=== PATIENT | female | born 1965 | race Caucasian/White ===

== ENCOUNTER → 2017-03-12 | Outpatient (CLI) | payer OTHER ==
--- NOTE | 2017-03-12 12:15 | REP ---
BILATERAL DIGITAL SCREENING MAMMOGRAPHY: 03/12/2017 COMPARISON: 01/18/2016, 01/15/2015, 01/08/2014. CLINICAL HISTORY: She has no current complaints. There is no personal history of breast cancer. There is a family history of an aunt with breast cancer. Technologist notes indicate that during compression of the right breast there is a brownish discharge. The patient stated this has been intermittently present on the right for the past 3 years. FINDINGS: The breast parenchyma are extremely dense which limits the sensitivity of mammography. Scattered lymph nodes are seen in the axilla. Scattered small benign appearing calcifications are present of doubtful clinical significance. No dominant masses, suspicious cluster of microcalcifications or secondary signs of malignancy are seen. Specifically, I see no abnormal findings in the retroareolar region of the right breast in this patient with discharge upon compression today. IMPRESSION: BIRADS ACR category 2, benign. Benign findings. No evidence of malignancy. However, the presence of a discharge during compression with brownish character raises some concern. The technologist states that this will be evaluated with laboratory analysis for blood per her physician. Pending that, further evaluation may be needed with ductogram for continued discharge. Otherwise, based on the mammogram alone, no other follow-up is needed at this time. BI-RADS/ACR category 2 mammogram. Benign finding(s). Routine annual screening mammography (for women over age 40). This mammogram was interpreted with the aid of an FDA-approved computer-aided detection system. A. Negative x-ray reports should not delay biopsy if a dominant or clinically suspicious mass is present. B. Four to eight percent of cancers are not identified by x-ray. C. Adenosis and dense breasts may obscure an underlying neoplasm. The patient states she/he had a clinical breast exam in March,. The patient letter being requested is M1, dense.
== END ==
LOC: M WHC 10:13
PROVIDERS: ATTEND Nurse Practitioner Women's Health
DX: Z12.31 Encounter for screening mammogram for malignant neoplasm of breast (principal)

== ENCOUNTER → 2017-03-12 | Outpatient (REF) | payer OTHER | LOC: M SFHCWAGY 10:50 | PROVIDERS: ATTEND Nurse Practitioner Women's Health | DX: N64.52 Nipple discharge (principal); Z12.39 Encounter for other screening for malignant neoplasm of breast ==

== ENCOUNTER → 2017-03-15 | Outpatient (REF) | payer OTHER | LOC: M WHC 17:10 | PROVIDERS: ATTEND Nurse Practitioner Women's Health | DX: N64.52 Nipple discharge (principal); Z12.39 Encounter for other screening for malignant neoplasm of breast ==

== ENCOUNTER → 2017-03-22 | Outpatient (CLI) | payer OTHER ==
[~2017-03-22] MED LIST: CONRAY-43 43% 50ML VIAL (Q9960) As Ordered ONE
--- NOTE | 2017-03-22 15:52 | REP ---
Right breast galactogram: Informed consent is obtained including the possibility is of of breast infection and allergic reaction to either medications utilized. After antiseptic preparation of the nipple of the right breast, and using sterile technique, a colectomy cannula was introduced into the discharging duct. Approximately weight 3 ml of radiopaque contrast is slowly injected with the patient supine, utilizing gravitation. Following this the cannula is removed and a steri-strip is applied to the nipple. Followup mammograms are performed in MLO and CC projections including magnified views. Findings: There is a filling defect posteriorly near to the chest wall at the approximate 3 o'clock location in the posterior third of the breast. Review of the patient's recent mammogram dated 03/12/2017 identifies no focal abnormality in this location. Some diagnostic considerations are papilloma and DCIS. I would recommend follow-up ultrasonography and possibly mammography for further evaluation and localization. If the lesion is visible on ultrasound, an ultrasound guided biopsy might be possible. Signed by Leighton Brasher MD 03/22/2017 03:44 P
== END ==
LOC: M RAD 13:28
PROVIDERS: ATTEND Nurse Practitioner Women's Health
DX: N64.52 Nipple discharge (principal); R92.8 Other abnormal and inconclusive findings on diagnostic imaging of breast
CPT/HCPCS: 77054; Q9960

== ENCOUNTER → 2017-03-30 | Outpatient (CLI) | payer OTHER ==
--- NOTE | 2017-03-30 10:54 | REP ---
ULTRASOUND RIGHT BREAST: Ultrasound right breast performed. Correlation made with right breast ductogram performed 03/22/2017. That ductogram showed a filling defect in a mildly dilated duct posterolaterally in the right breast at 9-o'clock position. Real-time sonographic evaluation of the right breast is performed both medially and laterally. Scattered mildly dilated ducts contain ill-defined internal debris. No discrete cystic or solid nodule is seen. IMPRESSION: No discrete cystic or solid nodule in the region of filling defect seen on the right breast ductogram of 03/22/2017. That filling defect was seen at 9 -o'clock position. Further evaluation could be made with MRI. Signed by Leighton Bales MD 03/30/2017 04:39 P
== END ==
LOC: M RAD 09:41
PROVIDERS: ATTEND Nurse Practitioner Women's Health
DX: N64.52 Nipple discharge (principal)

== ENCOUNTER → 2018-12-05 | Outpatient (REF) | payer OTHER ==
--- NOTE | 2018-12-05 10:23 | REPMRS ---
Patient History The patient states she had a clinical breast exam in 11/2018. Family history of breast cancer in maternal aunt. 3D TOMOSYNTHESIS WAS PERFORMED. Digital Woman Screen Mammo: December 05, 2018 - Exam #: [id number] Bilateral CC and MLO view(s) were taken. Technologist: Cindy Brambila, Technologist Prior study comparison: March 12, 2017, digital woman screen mammo performed at [facility]. January 21, 2016, digital woman screen mammo performed at [facility]. FINDINGS: The breast tissue is extremely dense which could obscure a lesion on mammography. There is no evidence of cancer on this mammogram. No significant changes when compared with prior studies. Assessment: BI-RADS/ACR category 2 mammogram. Benign Findings. Recommendation Routine screening mammogram of both breasts in 1 year (for women over age 40). This mammogram was interpreted with the aid of an FDA-approved computer-aided dectection system. Electronically Signed By: Leighton Bales MD 12/05/18 [id number]
== END ==
LOC: M WHC 08:26 → EDSTATUS 09:00
PROVIDERS: ATTEND Nurse Practitioner Women's Health
DX: Z12.31 Encounter for screening mammogram for malignant neoplasm of breast (principal)

== ENCOUNTER → 2019-12-07 | Outpatient (CLI) | payer OTHER ==
--- NOTE | 2019-12-07 10:19 | REPMRS ---
Patient History The patient states she had a clinical breast exam in November 2019.Family history of breast cancer in maternal aunt. Digital Woman Screen Mammo: December 07, 2019 - Exam #: [id number] Bilateral CC and MLO view(s) were taken. Technologist: Sally Ybarra, Technologist Prior study comparison: December 05, 2018, bilateral digital woman screen mammo performed at [facility]. March 22, 2017, right breast mammary ductogram, multiple, performed at [facility]. March 12, 2017, digital woman screen mammo performed at [facility]. January 21, 2016, digital woman screen mammo performed at [facility]. FINDINGS: The breast tissue is extremely dense which could obscure a lesion on mammography. The Volpara volumetric breast density category is: D. There is an extremely dense symmetrical pattern of residual fibroglandular tissue. There has been no change in the appearance of the mammogram from the previous studies. There is no interval development of dominant mass, archetectural distortion, or grouped microcalcifications suggestive of malignancy. 3-D tomosynthesis shows no additional findings. Please note that the patient had a significant amount of brown or rust colored right breast nipple discharge when the right breast was compressed for today's mammography. By history, this is chronic. Assessment: BI-RADS/ACR category 1 mammogram. Negative Mammogram. Recommendation Routine screening mammogram of both breasts in 1 year (for women over age 40). This patient's Lifetime Breast Cancer RIsk is estimated at 12.2 %. There may be a role for bilateral breast MRI scanning in this patient with a chronic history of right breast nipple discharge associated with compression mammography. By history this discharge is brown or rust color. This mammogram was interpreted with the aid of an FDA-approved computer-aided dectection system. Electronically Signed By: Caio Anaya MD 12/07/19 1017
== END ==
LOC: M WHC 08:41
PROVIDERS: ATTEND Nurse Practitioner Women's Health
DX: Z12.31 Encounter for screening mammogram for malignant neoplasm of breast (principal)

== ENCOUNTER → 2020-01-17 | Outpatient (CLI) | payer OTHER ==
[~2020-01-17] MED LIST changes: -CONRAY-43 43% 50ML VIAL (Q9960) As Ordered ONE; +PROHANCE 279.3MG/ML 15ML VIAL As Ordered ONE
--- NOTE | 2020-01-18 00:21 | REP ---
MRI BILATERAL BREASTS WITH AND WITHOUT CONTRAST: HISTORY: Family history of breast cancer maternal aunt, right breast discharge, dense breasts. Correlation mammogram 12/07/2019. TECHNIQUE: Multiple sequences obtained in the axial, coronal, and sagittal planes prior to and following the intravenous administration of 12 mL ProHance. Images are evaluated in the Odojo software, including dynamic post IV gadolinium T1 fat-sat images, subtraction images, color overlay images, CAD images, and MIP reconstruction images. There is an extreme pattern of parenchymal tissue bilaterally. Subcentimeter cyst in the 6-o'clock region of the right breast inferiorly does not enhance. There are moderately dilated ducts in the right breast with no suspicious internal enhancement. In the inferolateral posterior left breast, there is a well-defined nodule on T2-weighted images, hyperintense, which demonstrates persistent-type enhancement. Borders are very well defined and smoothly marginated. Maximum diameter is 8 mm. This is most consistent with a fibroadenoma. No suspicious enhancing mass or morphologic abnormality is seen bilaterally. There is no axillary adenopathy. There is a cyst in the right lobe of the liver, which does not enhance, measuring 1.4 cm. IMPRESSION: BI-RADS category 2, benign. Extreme parenchymal tissue bilaterally. Moderately dilated ducts in the right breast contain hyperintense material on T1-weighted imaged, consistent with proteinaceous material. No internal abnormal enhancement. There is an 8 mm nodule in the inferolateral posterior left breast with signal and enhancement characteristics consistent with a fibroadenoma. There is no suspicious enhancing mass or morphologic abnormality bilaterally. Electronically Signed by Leighton Bales MD 01/18/2020 01:29 P
== END ==
LOC: M RAD 10:10
PROVIDERS: ATTEND Nurse Practitioner Family
DX: R92.2 Inconclusive mammogram (principal); N64.52 Nipple discharge; Z80.3 Family history of malignant neoplasm of breast; Z91.89 Other specified personal risk factors, not elsewhere classified; N63.20 Unspecified lump in the left breast, unspecified quadrant

== ENCOUNTER → 2020-12-11 | Outpatient (REF) | payer BC | LOC: M SFHCWAGY 12:59 | PROVIDERS: ATTEND Nurse Practitioner Women's Health | DX: Z12.4 Encounter for screening for malignant neoplasm of cervix (principal); Z77.9 Other contact with and (suspected) exposures hazardous to health ==

== ENCOUNTER → 2020-12-11 | Outpatient (CLI) | payer BC ==
--- NOTE | 2020-12-11 10:13 | REPMRS ---
Patient History The patient states she had a clinical breast exam in December 2020. Patient is postmenopausal. Family history of breast cancer in maternal aunt, breast cancer at age 82 in mother, prostate cancer at age 50 or over in brother. Patient states no new breast complaints. Patient states history of right breast brown nipple discharge since about 2016. Patient has signed the MRS history sheet Digital Woman Screen Mammo: December 11, 2020 - Exam #: [id number] Bilateral CC and MLO view(s) were taken. Technologist: Cindy Brambila, Technologist Prior study comparison: December 07, 2019, bilateral digital woman screen mammo performed at [facility]. December 05, 2018, bilateral digital woman screen mammo performed at [facility]. FINDINGS: The breast tissue is extremely dense which could obscure a lesion on mammography. Screening. Digital screening (2D) mammography was performed bilaterally in the CC and MLO projections. Additionally, breast tomosynthesis (3D mammography) was performed bilaterally in the CC and MLO projections. Todays exam was compared to the prior exams(s). By history, the patient has no complaints of a palpable breast abnormality or other significant breast complaints. The breasts are unchanged in size and shape. Once again, dense heterogenous fibroglandular elements are seen bilaterally in a stable appearing pattern but to such a degree that the sensitivity of the mammogram in detecting cancer is decreased.There are no heber-soft tissue densities or spiculated masses. There is no internal architectural distortion. Once again, stable benign appearing calcifications are seen.There are no suspicious heber-calcific clusters. Skin thickening or nipple retraction is not present. IMPRESSION: BI-RADS Category 2- Benign Findings(s). There is no evidence of malignant alteration of the breasts. Followup examination recommended in one year. This mammogram was read with the assistance of [employer]ark[employer],an FDA approved computer aided detection system for mammography. The Volpara volumetric breast density category is D, the breasts are extremely dense which lowers the sensitivity of mammography. Negative x-ray reports should not delay surgical consultation if a dominant or clinically suspicious mass is present. The lifetime Tyrer-Cuzick score is 19.1% Not all breast cancers can be identified by mammography. Therefore, we recommend that you continue to perform regular breast self-examination and physical examination and then promptly contact your physician of any concerns or changes. Adenosis and dense breasts may obscure an underlying neoplasm. Assessment: BI-RADS/ACR category 2 mammogram. Benign Findings. Recommendation Routine screening mammogram of both breasts in 1 year. Electronically Signed By: Junior Calvin DO 12/11/20 1019
== END ==
LOC: M WHC 07:52
PROVIDERS: ATTEND Nurse Practitioner Women's Health
DX: Z12.31 Encounter for screening mammogram for malignant neoplasm of breast (principal)

== ENCOUNTER → 2021-03-14 | Outpatient (CLI) | payer BC ==
[2021-03-14 17:38] LABS: FREE T4 0.76 NG/DL (0.76-1.46); PROLACTIN 9.4 NG/ML; THYROID STIMULATING HORMONE 0.796 uIU/ML (0.358-3.740)
== END ==
LOC: M PLALAB 15:23
PROVIDERS: ATTEND Surgery
DX: N64.52 Nipple discharge (principal)

== ENCOUNTER → 2021-03-24 | Outpatient (CLI) | payer BC ==
--- NOTE | 2021-03-24 15:52 | REP ---
INDICATION: Nipple discharge COMPARISON: No prior ultrasound exams obtained in this fashion TECHNIQUE: Real-time sonographic evaluation of the right breast as described above using anatomical intelligence and shear wave elastography if necessary FINDINGS: There are no cystic or solid masses. IMPRESSION: ACR category 2 benign right breast ultrasound exam. A negative ultrasound examination does not obviate ductography in patients with known nipple discharge. If an intraductal lesion is of clinical concern an MRI examination may be warranted. <Electronically signed by Junior Calvin > 03/24/21 [id number]
== END ==
LOC: M WHC 13:32
PROVIDERS: ATTEND Surgery
DX: N64.52 Nipple discharge (principal)

== ENCOUNTER → 2021-04-22 | Outpatient (CLI) | payer BC ==
--- NOTE | 2021-04-22 10:05 | REP ---
INDICATION: DISCHARGE FROM RT NIPPLE. COMPARISON: MRI 01/17/2020, ultrasound 03/24/2021, mammogram 12/11/2020. TECHNIQUE: Three Kelly MRI imaging was performed with a dedicated breast coil. Axial, coronal, and sagittal T1 and T2 weighted scans were obtained with and without fat saturation in the usual fashion. The study includes dynamically acquired post gadolinium-enhanced imaging with image subtraction. Maximum intensity projection and multi planar reformation imaging is included as well. This study is interpreted with the aid of [employer]Nsquare, an FDA approved computer aided detection (CAD) software program, on a dedicated breast MRI workstation. The gadolinium enhancement dose is 12 mL of intravenous ProHance. FINDINGS: There is an extreme pattern of parenchymal tissue again seen bilaterally. No significant cystic change is seen in either breast. There is no axillary adenopathy bilaterally. Mildly dilated ducts are again seen in the right breast containing hyperdense proteinaceous or hemorrhagic material. There is no suspicious intraductal enhancement. An 8 mm fibroadenoma is again seen in the inferolateral left breast, unchanged. There is no suspicious enhancing mass or morphologic abnormality. There is a 1.4 cm cyst in the right lobe of the liver, unchanged. IMPRESSION: BI-RADS category 2, benign bilateral breast MRI. No significant change compared to the prior study. Mildly dilated ducts in the right breast contain proteinaceous or hemorrhagic material with no suspicious internal enhancement. 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 There is no suspicious enhancing mass or morphologic abnormality. <Electronically signed by Leighton Bales > 04/22/21 1002
== END ==
LOC: M RAD 08:14
PROVIDERS: ATTEND Surgery
DX: N64.52 Nipple discharge (principal)

== ENCOUNTER → 2021-05-27 | Outpatient (CLI) | payer BC ==
--- NOTE | 2021-05-27 15:21 | REP ---
INDICATION: PRE OP TESTING. COMPARISON: None. TECHNIQUE: PA and lateral views FINDINGS: The superior mediastinal structures are midline. The cardiac silhouette is unremarkable in size, shape, and position. The diaphragmatic surfaces of the lungs are regular, and the costophrenic angles are clear. The pulmonary adrian are clear. The imaged osseous structures are intact. IMPRESSION: There is no acute cardiopulmonary disease. <Electronically signed by Junior Calvin > 05/27/21 [id number]
== END ==
LOC: M WUC 09:47
PROVIDERS: ATTEND Internal Medicine
DX: Z01.811 Encounter for preprocedural respiratory examination (principal)

== ENCOUNTER → 2021-06-12 | Outpatient (CLI) | payer BC ==
[~2021-06-12] MED LIST changes: +CALCCAP4 PO; +CVS-161 PO; +MULT-90 PO; -PROHANCE 279.3MG/ML 15ML VIAL As Ordered ONE
== END ==
LOC: M LABSMTC 10:24
PROVIDERS: ATTEND Anesthesiology
DX: Z01.818 Encounter for other preprocedural examination (principal); Z11.52 Encounter for screening for COVID-19

== ENCOUNTER 2021-06-17 06:01 | Day surgery (SDC) | payer BC ==
[~2021-06-17] VITALS: Ht 162.6 cm; Wt 56.7 kg
[~2021-06-17 06:01] MED LIST changes: +HEPARIN SOD (PORCINE) 5000UNITS/ML 1ML VIAL/SYRINGE SQ ONE; +LR 1,000 ML IV ONE; +ceFAZolin SOD 2 GM in IV 1 EA IV ONE
--- OUTSIDE RECORDS SUMMARY | 2021-06-17 06:05 | CCD | Continuity of Care Document ---
Author Organization Unknown Address Unknown Phone Unavailable Care Team Providers [facility] [place] Machine Operator Name Role Phone Donell Tineo AUTM [phone] Problems Description No Information Available Social History Type Date Description Comments Sex Unknown ETOH Use Rarely consumes alcohol Tobacco Use Start: Unknown End: Unknown Patient is a former smoker smoked for 10 to 12 years 1/2 to 1 kevin daily quit in 2018 Exercise Type/Frequency Exercises regularly Walk s a lot Guns in Home No Smoke Alarms Carbon Monoxide Detector: Yes Smoke Alarms Yes Allergies, Adverse Reactions, Alerts Description No Known Drug Allergies Medications Active Medications SIG Qnty Indications Ordering Provide r Date Shingrix 50mcg/0.5ML Suspension Re c administer 0.5 milliliters intramuscular, repeat in 2 to 6 months 2units JULIO C Wilkinson JR 12/20/2020 History Medications No Active Medications Unknown 04/2021 - 12/20/2020 Medications Administered in Office Medication SIG Qnty Indications Ordering Provider Date Covid-19 vaccine, Unspecified Inj ection Unknown 11/06/2020 Immunizations Description No Information Available Vital Signs Date Vital Result Comment 11/15/2020 8:45am BP Systolic 134 mmHg BP Diastolic 84 mmHg Heart Rate 82 /min Height 64 inches 5'4" Weight 130.00 lb O2 % BldC Oximetry 98 % RM Air BMI (Body Mass Index) 22.3 kg/m2 Results Test Acquired Date Facility Test Result H/L Range Note Laboratory test finding 03/14/2021 [facility] [address] [place] [address] [phone] Thyroid Stimulating Hormone 0.796 uIU/ML Normal 0. 358-3.740 Free T4 0.76 ng/dL Normal 0.76-1.46 Prolactin 9.4 NG/ML Normal 1 Complete Blood Count 11/15/2020 [facility] [employer] Data Warehouse Consultant: [place] [address] [phone] WBC 5.6 x10*3/UL 4.1 - 10.9 RBC 4.39 x10*6/UL 4.20 - 6.30 Hemoglobin 14.0 g/dL 12.0 - 18.0 Hematocrit 41.4 % 37.0 - 51.0 MCV 94.2 fL 80.0 - 97.0 MCH 31.9 pg 26.0 - 32.0 MCHC 33.9 g/dL 31.0 - 38.0 RDW 12.3 % 11.6 - 13.7 PLT 297 x10*3/UL 140 - 440 MPV 7.5 FL Low 7.8 - 11.0 Lymph % 31.0 % 10.0 - 58.5 Mid % 8.2 % 1.7 - 9.3 Neut % 60.8 % 37.0 - 92.0 Lymph # 1.7 x10*3/UL 0.6 - 4.1 Mid # 0.5 x10*3/UL 0.1 - 0.6 Neut # 3.4 x10*3/UL 2.0 - 7.8 Comprehensive Chem Profile 11/15/2020 [facility] Int tonie oneal Data Warehouse Consultant: [place] [address] [phone] Glucose 123 mg/dL High 74 - 99 2 BUN 10 mg/dL 7 - 18 Creatinine 0.6 mg/dL 0.6 - 1.3 Sodium 137 mEq/L 136 - 145 Potassium 4.5 mEq/L 3.5 - 5.1 Chloride 102 mEq/L 98 - 107 Carbon Dioxide 25 mEq/L 21 - 32 Calcium 9.2 mg/dL 8.5 - 10.1 Alk. Phosphatase 79 mg/dL 46 - 116 Total Bilirubin 0.5 mg/dL 0.2 - 1.0 Ast (Sgot) 28 U/L 15 - 37 Alt (SGPT) 37 U/L 12 - 78 Albumin 4.1 g/dL 3.4 - 5.0 Total Protein 8.0 g/dL 6.4 - 8.2 A/G Ratio 1.05 CALC 1.00 - 1.90 GFR >= 60 mL/min >60 GFR >= 60 mL/min >60 3 Lipid Profile 11/15/2020 [facility] [employer] Data Warehouse Consultant: Dr [place]el [place] [address] [phone] Cholesterol 144 mg/dL 131 - 200 Triglycerides 54 mg/dL 30 - 150 HDL Cholesterol 70 mg/dL High 35 - 60 LDL (Calculated) 63 CALC 50 - 159 Laboratory test finding 11/15/2020 [facility] Isabell simons, Data Warehouse Consultant: Dr Noel [place] [address] [phone] Thyroid Stimulating Hormone 0.48 uIU/mL 0.3 6 - 3.74 A1c 11/15/2020 [facility] Ivan , Data Warehouse Consultant: Dr Noel [place] [address] [phone] Hba1c 5.4 % <5.7 4 Est Avg Glucose 108 mg/dL 60 - 110 1 Non-: 2.8 - 29. 2 ng/mL : 9.7 - 208.5 ng/mL Post Menopausal: 1.8 - 20.3 ng/mL 2 100-125 mg/dL PRE-DIABET ES/FASTING >126 mg/dL DIABETES/FASTING 3 CHRONIC KIDNEY DISEASE STAGI NG PER NKF STAGE I & II GFR >= 60 NORMAL TO MILDLY DECREASED STAGE III GFR 30-59 MODERATELY DECREASED STAGE IV GFR 15-29 SEVERELY DECREASED STAGE V GFR <15 VERY LITTLE GFR LEFT ESRD GFR <15 ON CHEESEMAKER HELPER 4 Lab Result Notes: Pre-Diabetes 5.7 - 6.4 % Diabetes = or > 6.5% Procedures Date Code Description Status 11/15/2020 59976 Preventative Medicine (40-64Yrs) Completed 11/15/2020 94923 EKG/Interpretation & Report Comp leted Medical Devices Description No Information Available Encounters Type Date Location Provider Dx Diagnosis Office Visit 11/15/2020 9:00a [facility] Ivan PPhillip Tineo JR, PA Z00.01 Encounter for general adult medical exam w abnormal findings R73.09 Other abnormal glucose Z13.220 Encounter for screening for lipoid disorders Z87.891 Personal history of nicotine dependence Z13.89 Encounter for screening for other disorder Assessments Date Code Description Provider 11/15/2020 Z00.01 Encounter for genera l adult medical examination with abnormal findings JULIO C Wilkinson JR 11/15/2020 R73.09 Other abnormal glucose JULIO C Wilkinson JR 11/15/2020 Z13.220 Encounter for screening for lipo id disorders JULIO C Wilkinson JR 11/15/2020 Z87.891 Personal history of nicotine dep endence JULIO C Wilkinson JR 11/15/2020 Z13.89 Encounter for screening for othe r disorder JULIO C Wilkinson JR Plan of Treatment Future Appointment(s):* 11/17/2021 8:00 am - [facility] 11/15/2020 - JULIO C Wilkinson JR* Z00.01 Encounter for general adult medical examination with abnormal findings * R73.09 Other abnormal glucose * Z13.220 Encounter for screening for lipoid disorders* Comments:* Pending * Z87.891 Personal history of nicotine dependence * Z13.89 Encounter for screening for other disorder * All * New Medication:* No Active Medications - * Comments:* Former smoker, believes immunizations are UTD, will check [facility] website, RTC 1 year or sooner PRN Functional Status Description No Information Available Mental Status Description No Information Available Referrals Description No Information Available
--- OUTSIDE RECORDS SUMMARY | 2021-06-17 06:05 | CCD | Continuity of Care Document ---
Author Author Melody GRANADOS DO Organization Unknown Address [address] [facility] [address] [place] [address] Phone [phone] Care Team Providers Care Waste Reclaimer Name Role Phone Donell Tineo AUTM [phone] Problems Description No Information Available Social History [...] Carbon Monoxide Detector: Yes Smoke Alarms Yes Allergies and adverse reactions Description No Known Drug Allergies Medications Active Medications SIG Qnty Indications Ordering Provide r Date Shingrix 50mcg/0.5ML Suspension Re c administer 0.5 milliliters intramuscular, repeat in 2 to 6 months 2units JULIO C Wilkinson JR 12/20/2020 Medications Administered in Office Medication SIG Qnty Indications Ordering Provider Date Covid-19 vaccine, Unspecified Inj ection Unknown 11/06/2020 Immunizations Description No Information Available Vital Signs Date Vital Result Comment 05/27/2021 8:43am BP Systolic 122 mmHg BP Diastolic 72 mmHg Heart Rate 68 /min Height 64 inches 5'4" Weight 127.00 lb BMI (Body Mass Index) 21.8 kg/m2 11/15/2020 8:45am BP Systolic 134 mmHg BP Diastolic 84 mmHg Heart Rate 82 /min Height 64 inches 5'4" Weight 130.00 lb O2 % BldC Oximetry 98 % RM Air BMI (Body Mass Index) 22.3 kg/m2 Results Test Acquired Date Facility Test Result H/L Range Note Complete Blood Count 05/27/2021 [facility] Tile Sprayer: [place] [address] [phone] WBC 6.4 x10*3/UL 4.1 - 10.9 RBC 4.20 x10*6/UL 4.20 - 6.30 Hemoglobin 14.3 g/dL 12.0 - 18.0 Hematocrit 40.4 % 37.0 - 51.0 MCV 96.0 fL 80.0 - 97.0 MCH 34.1 pg High 26.0 - 32.0 MCHC 35.5 g/dL 31.0 - 38.0 RDW 12.9 % 11.6 - 13.7 PLT 210 x10*3/UL 140 - 440 MPV 8.3 FL 7.8 - 11.0 Lymph % 23.6 % 10.0 - 58.5 Mid % 5.6 % 1.7 - 9.3 Neut % 70.8 % 37.0 - 92.0 Lymph # 1.5 x10*3/UL 0.6 - 4.1 Mid # 0.4 x10*3/UL 0.1 - 0.6 Neut # 4.5 x10*3/UL 2.0 - 7.8 Comprehensive Chem Profile 05/27/2021 [facility] Tile Sprayer: [place] [address] [phone] Glucose 102 mg/dL High 74 - 99 1 BUN 7 mg/dL 7 - 18 Creatinine 0.7 mg/dL 0.6 - 1.3 Sodium 139 mEq/L 136 - 145 Potassium 4.1 mEq/L 3.5 - 5.1 Chloride 102 mEq/L 98 - 107 Carbon Dioxide 28 mEq/L 21 - 32 Calcium 9.4 mg/dL 8.5 - 10.1 Alk. Phosphatase 69 mg/dL 46 - 116 Total Bilirubin 0.4 mg/dL 0.2 - 1.0 Ast (Sgot) 19 U/L 15 - 37 Alt (SGPT) 22 U/L 12 - 78 Albumin 4.1 g/dL 3.4 - 5.0 Total Protein 7.4 g/dL 6.4 - 8.2 A/G Ratio 1.24 CALC 1.00 - 1.90 GFR >= 60 mL/min >60 GFR >= 60 mL/min >60 2 Laboratory test finding 03/14/2021 [facility] [address] [place] [address] [phone] Thyroid Stimulating Hormone 0.796 uIU/ML Normal 0. 358-3.740 Free T4 0.76 ng/dL Normal 0.76-1.46 Prolactin 9.4 NG/ML Normal 3 1 100-125 mg/dL PRE-DIABET ES/FASTING >126 mg/dL DIABETES/FASTING 2 CHRONIC KIDNEY DISEASE STAGI NG PER NKF STAGE I & II GFR >= 60 NORMAL TO MILDLY DECREASED STAGE III GFR 30-59 MODERATELY DECREASED STAGE IV GFR 15-29 SEVERELY DECREASED STAGE V GFR <15 VERY LITTLE GFR LEFT ESRD GFR <15 ON ENGAGEMENT MANAGER 3 Non-: 2.8 - 29. 2 ng/mL : 9.7 - 208.5 ng/mL Post Menopausal: 1.8 - 20.3 ng/mL Procedures Description No Information Available Medical Devices Description No Information Available Encounters Description No Information Available Assessments Date Code Description Provider 05/27/2021 Z01.810 Encounter for preprocedural card iovascular examination Leo Granados DO 05/27/2021 N64.52 Nipple discharge Leo escudero DO Plan of Treatment Future Appointment(s):* 11/17/2021 8:00 am - JULIO C Wilkinson JR at [facility] 05/27/2021 - Leo Granados DO* Z01.810 Encounter for preprocedural cardiovascular examination * N64.52 Nipple discharge Functional Status Description No Information Available Mental Status Description No Information Available Referrals Description No Information Available
--- OUTSIDE RECORDS SUMMARY | 2021-06-17 06:05 | CCD ---
Author Author [facility] Organization [facility] Address Unknown Phone Unavailable Care Team Providers Care Installer Name Role Phone Armida Nichols Unavailable PROBLEMS Type Condition ICD9-CM Code GCZ18-ZU Code Onset Dates Condition S tatus W/U Status Risk SNOMED Code Notes Problem Tobacco use disorder Z72.0 Active confirmed 045585000 Problem Routine gynecological examination Z01.419 Active confirmed 024584944 Problem History of cervical dysplasia Z87.410 Active confir med 979879263 ALLERGIES No Known Allergies ENCOUNTERS from 1965 to 2021-03-20 Encounter Location Date Provider Diagnosis [facility] [address] [place] [address] [place] [address] Mar, Armida Nichols Nipple discharge N64.52 ; [facility] of [facility] Z80.9 ; At high risk for breast cancer Z91.89 ; Fibroadenoma of left breast D24.2 and Dense breast R92.2 IMMUNIZATIONS No Information SOCIAL HISTORY Tobacco Use: Social History Observation Description Date Details (start date - stop date) Never Smoker Sex Assigned At : Social History Observation Description Sex Assigned At Unknown Sexual Hx: Question Answer Notes Had sex in the last 12 months (vaginal, oral, or anal)? No LMP: post menopause Have you ever had an STD? Yes Other? Yes Herpes? No Syphilis? No GC? No Chlamydia? No Alcohol Screening: Question Answer Notes Did you have a drink containing alcohol in the past year? Ye s Points 2 Interpretation Negative How often did you have six or more drinks on one occas ion in the past year? Never (0 points) How many drinks did you have on a typica l day when you were drinking in the past year? 3 or 4 (1 point) How often did you have a drink containing alcohol in t he past year? Monthly or less (1 point) Tobacco Use: Question Answer Notes Are you a: never smoker REASON FOR REFERRAL No Information VITAL SIGNS Weight 127 lbs Mar, Weight-kg 57.61 kg Mar, Height 65" in Mar, BMI 21.13 kg/m2 Mar, Heart Rate 90 /min Mar, Respiratory Rate 18 /min Mar, Temperature 98.5 degrees Fahrenheit Mar, Oximetry 99 Mar, Blood pressure systolic 144 mm Hg Mar, Blood pressure diastolic 81 mm Hg Mar, MEDICATIONS Medication SIG (Take, Route, Frequency, Duration) Notes Start Da te End Date Status Bactrim DS 800-160 MG 1 tablet Orally twice daily for 7 day(s) Mar, Not-Taking Cranberry 300 MG 1 Orally daily Not- Taking Milk Thistle 1000mg 1 tablet Orally once a day Not-Taking Calcium 250 MG as directed Orally Ac tive Multivitamins otc 1 tablet Orally once a day Active Zinc 50 MG 1 tablet Orally Once a day Not-Taking Hair Skin Nails - as directed Orally Active Aspir-81 81 MG 1 tab(s) p.o. Once a day for 30 day(s) Not-Taking Vitamin C 1000mg 1 cap(s) p.o. once a day Not-Taking Vitamin D-3 1000 1 tab(s) p.o. once a day Not-Taking PROCEDURES No Information RESULTS Component Value Reference Range FREE T4 Reviewed date:03/19/2021 14:59:33 Interpretation:staff update Performing Lab:[facility] LABORATORY [address] [facility] [address] , ,[place] [address] FREE T4 0.76 0.76-1.46 PROLACTIN Reviewed date:03/19/2021 14:59:20 Interpretation:staff update Performing Lab:Critical access hospital LABORATORY [address] [facility] [id number] , ,[place] [address] PROLACTIN 9.4 TSH Reviewed date:03/19/2021 19:18:58 Interpretation:staff update Performing Lab:[facility], [facility] [id number] , ,[place] [address] THYROID STIMULATING HORMONE 0.796 0.358-3.740 REASON FOR VISIT R N discharge x 3.5 years MEDICAL (GENERAL) HISTORY Type Description Date Medical History right nipple discharge Medical History extremely dense breasts, TC 20.6%, mom a nd m. aunt with br ca Surgical History OVARIAN CYST REMOVED laparascopically Surgical History LEEP 11/09 Surgical History colposcopy 2004 Surgical History tubal ligation Hospitalization History No Hospitalization history informati on Goals Section No Information Health Concerns No Information MEDICAL EQUIPMENT No Information MENTAL STATUS No Information FUNCTIONAL STATUS No Information ASSESSMENTS Encounter Date Diagnosis Assessment Notes Treatment Notes Treatm ent Clinical Notes Mar, Nipple discharge (ICD-10 - N64.52) Patient reports unilateral, spontaneous, brown or clear nipple discharge coming from one duct. The discharge is worse with mammograms but patient also notices it on her clothes without stimulation. I have discussed with the patient various kinds of nipple discharge. I explained that nipple discharge which is every other color but bloody or clear, non- spontaneous, bilateral, from numerous ducts is usually benign and physiologic. Nipple discharge which is spontaneous, unilateral, from single duct, bloody or clear in color is more concerning. Occasionally, certain medications or changes in prolactin levels or abnormal thyroid function can cause nipple discharge, however the discharge in these situations is usually bilateral. I explained that we will start with testing her thyroid and prolactin levels and with right breast retroareolar ultrasound and the 9:00 area to assess if there are any abnormalities. The R US is scheduled for March 24 at 1:30PM. I will call her with the results. I explained that if we do not find the cause of drainage with the labs and R US, I would like to further assess with an MRI. She will need a BMP prior to the imaging. I also explained to the patient that id no cause is identified for her spontaneous unilateral nipple discharge, right breast duct excision will be recommended. We will discuss this in details at later time if needed. All questions were answered and patient agrees with the plan Mar, Family history of cancer (ICD-10 - Z80.9) Patient participated in our Cancer screening program and she was not found to be at increased risk for cancer based on her family history. She does not qualify for genetic testing or high risk screening with MRI of the breast based on her family history. Her TC score is 20.6% Mar, At high risk for breast cancer (ICD-10 - Z91.89) Patient participated in our cancer screening program and she was identified as a person at increased risk for development of breast cancer based on her family history. I have discussed with patient that annual mammogram and annual MRI are recommended for screening patients at increased risk of breast cancer. This screening is recommended to be started at the age of 30. The imaging studies are usually by 6 months from each other. I also explained to the patient that clinical breast exam should be done at least twice a year. One exam can be done with me and the other exam can be done with any other clinician as long as two good exams are done per year. Alternatively, I can do both exams if patient wishes for that. Patient can follow with Shirley Fitch NP for high risk screening. Her next mammogram will be due 12/2021. Followup appointhment will be scheduled at later time. 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 It was 8 mm at that time. We will continue to monitor this with annual MRIs. If the lesion shows growth pattern, we will discuss excision of the lesion. Mar, Dense breast (ICD-10 - R92.2) Patient has denser tissue seen on her mammography. I suggested supplemental whole breast ultrasounds with her screening mammograms Mar, Other Time spent face to face with the patient with over 50 % of time spent counseling the patient : 45 min Time spent reviewing the chart, requested consult information, radiology reports and imagin min TOTAL TIME SPENT FOR CARE OF THIS PATIENT AT THIS ENCOUNTER: 65 min I, Dr. Nichols, reviewed the medical note prepared by the scribe and confirm the findings and the discussed plan. PLAN OF TREATMENT Treatment Notes Assessment Notes Clinical Notes Nipple discharge Patient reports unilateral, spontaneous, brown or clear nipple discharge coming from one duct. The discharge is worse with mammograms but patient also notices it on her clothes without stimulation.I have discussed with the patient various kinds of nipple discharge. I explained that nipple discharge which is every other color but bloody or clear, non-spontaneous, bilateral, from numerous ducts is usually benign and physiologic. Nipple discharge which is spontaneous, unilateral, from single duct, bloody or clear in color is more concerning.Occasionally, certain medications or changes in prolactin levels or abnormal thyroid function can cause nipple discharge, however the discharge in these situations is usually bilateral.I explained that we will start with testing her thyroid and prolactin levels and with right breast retroareolar ultrasound and the 9:00 area to assess if there are any abnormalities.The R US is scheduled for March 24 at 1:30PM. I will call her with the results.I explained that if we do not find the cause of drainage with the labs and R US, I would like to further assess with an MRI. She will need a BMP prior to the imaging.I also explained to the patient that id no cause is identified for her spontaneous unilateral nipple discharge, right breast duct excision will be recommended. We will discuss this in details at later time if needed.All questions were answered and patient agrees with the plan Family history of cancer Patient participated in our Cancer screening program and she was not found to be at increased risk for cancer based on her family history. She does not qualify for genetic testing or high risk screening with MRI of the breast based on her family history.Her TC score is 20.6% At high risk for breast cancer Patient participated in our cancer screening program and she was identified as a person at increased risk for development of breast cancer based on her family history.I have discussed with patient that annual mammogram and annual MRI are recommended for screening patients at increased risk of breast cancer. This screening is recommended to be started at the age of 30. The imaging studies are usually by 6 months from each other.I also explained to the patient that clinical breast exam should be done at least twice a year. One exam can be done with me and the other exam can be done with any other clinician as long as two good exams are done per year. Alternatively, I can do both exams if patient wishes for that.Patient can follow with Shirley Fitch NP for high risk screening. Her next mammogram will be due 12/2021. Followup appointhment will be scheduled at later time.All questions were answered and patient agrees with the plan Fibroadenoma of left breast Patient was noted to have left breast fibroadenoma on her MRI of the breast from 01/2020. It was 8 mm at that time. We will continue to monitor this with annual MRIs. If the lesion shows growth pattern, we will discuss excision of the lesion. Dense breast Patient has denser tissue se en on her mammography. I suggested supplemental whole breast ultrasounds with her screening mammograms Treatment Notes Test Name Order Date Breast U/S Unilateral Limited 2021-03-14 Future Test Test Name Order Date FREE T4 & TSH PANEL [id number] PROLACTIN [id number] Insurance Providers Payer Name Payer Address Payer Phone Insured Name Patient Relati onship to Insured Coverage Start Date Coverage End Date BCBS [employer] P[employer] [id number] [facility] DND Consulting JULIO C SANCHE[address] [facility] [id number] [place] [employer] self
--- OUTSIDE RECORDS SUMMARY | 2021-06-17 06:05 | CCD | Continuity of Care Document ---
Author Author Melody GRANADOS DO Organization Unknown Address [address] [address] Phone [phone] Care Team Providers Care Implant Coordinator Name Role Phone Donell Tineo AUTM [phone] Problems Description No Information Available Social History [...] H/L Range Note Laboratory test finding 03/14/2021 [facility] [address] [place] [address] [phone] Thyroid Stimulating Hormone 0.796 uIU/ML Normal 0. 358-3.740 Free T4 0.76 ng/dL Normal 0.76-1.46 Prolactin 9.4 NG/ML Normal 1 1 Non-: 2.8 - 29. 2 ng/mL [...] am - JULIO C Wilkinson JR at [facility] 05/27/2021 - Leo Granados DO* Z01.810 Encounter for preprocedural cardiovascular examination * N64.52 Nipple discharge Functional Status Description No Information Available Mental Status Description No Information Available Referrals Description No Information Available
--- OUTSIDE RECORDS SUMMARY | 2021-06-17 06:05 | CCD | Continuity of Care Document ---
Author Author Melody GRANADOS DO Organization Unknown Address [address] [facility] [address] [place] [address] Phone [phone] Care Team Providers Care Prototype Fabricator Name Role Phone Donell Tineo AUTM [phone] Armida Nichols DO AUTM Problems Description No Information Available Social History [...] H/L Range Note Complete Blood Count 05/27/2021 [facility] yeager Discharge Specialist: [place] [address] [phone] WBC 6.4 x10*3/UL 4.1 - 10.9 RBC [...] 2.0 - 7.8 Comprehensive Chem Profile 05/27/2021 [facility] Discharge Specialist: [place] [address] [phone] Glucose 102 mg/dL High 74 - 99 [...] mL/min >60 2 Laboratory test finding 03/14/2021 [address] [place] [address] [phone] Thyroid Stimulating Hormone 0.796 uIU/ML Normal 0. [...] LITTLE GFR LEFT ESRD GFR <15 ON CCO & PRESIDENT 3 Non-: 2.8 - 29. 2 ng/mL : 9.7 - 208.5 ng/mL Post Menopausal: 1.8 - 20.3 ng/mL Procedures Date Code Description Status 05/27/2021 86368 Office/Outpatient Established Mo d MDM 30-39 Min Completed 05/27/2021 57744 EKG/Interpretation & Report Comp leted Medical Devices Description No Information Available Encounters Type Date Location Provider Dx Diagnosis Office Visit 05/27/2021 9[facility]a [facility] francoise Granados DO Z01.810 Encounter for preprocedural cardiovascular examination N64.52 Nipple discharge Assessments Date Code Description Provider 05/27/2021 Z01.810 Encounter for preprocedural card iovascular examination Leo Granados DO 05/27/2021 N64.52 Nipple discharge Leo escudero DO Plan of Treatment Future Appointment(s):* 11/17/2021 8:00 am - JULIO C Wilkinson JR at [facility] 05/27/2021 - Leo Granados DO* Z01.810 Encounter for preprocedural cardiovascular examination * N64.52 Nipple discharge Functional Status Description No Information Available Mental Status Description No Information Available Referrals Description No Information Available
--- OUTSIDE RECORDS SUMMARY | 2021-06-17 06:05 | CCD ---
Author Author [facility] Organization [facility] Address Unknown Phone Unavailable Care Team Providers Care Freight Rate Clerk Name Role Phone Tarahfabricio Armida Unavailable PROBLEMS Type Condition ICD9-CM Code SSM16-UO Code Onset Dates Condition S tatus W/U Status Risk SNOMED Code Notes Problem Tobacco use disorder Z72.0 Active confirmed 291482286 Problem Routine gynecological examination Z01.419 Active confirmed 459007266 Problem History of cervical dysplasia Z87.410 Active confir med 079076524 ALLERGIES No Known Allergies ENCOUNTERS from 1965 to 2021-04-25 Encounter Location Date Provider Diagnosis [facility] [address] [place] [address] [place] [address] Apr, Armida Nichols IMMUNIZATIONS No Information SOCIAL HISTORY Tobacco Use: [...] REASON FOR REFERRAL No Information VITAL SIGNS No information MEDICATIONS Medication SIG (Take, Route, Frequency, Duration) [...] a day Not-Taking PROCEDURES No Information RESULTS No Results REASON FOR VISIT 06/10/21 SURG AUTH MEDICAL (GENERAL) HISTORY Type Description Date Medical [...] No Information FUNCTIONAL STATUS No Information ASSESSMENTS No Information PLAN OF TREATMENT Next Appt Details Provider Name:Armida Nichols, 29-[birth year]-02 07:30:00 AM, [address] [place] [address] , [place], [address] Provider Name:Armida Nichols, 29-06-08 10:30:00 AM, [address] [place] [address] , [place], [address], Insurance Providers Payer Name Payer Address Payer Phone Insured Name Patient Relati onship to Insured Coverage Start Date Coverage End Date [facility] [place] [id number] [facility] [place] [id number] [employer] [employer] self
--- OUTSIDE RECORDS SUMMARY | 2021-06-17 06:06 | CCD ---
Author Author [facility] Organization [facility] Address Unknown Phone Unavailable Care Team Providers Care Magazine Filler Name Role Phone Liz ELLIS JR PA-C Unavailable Unavailable Liz ELLIS JR PA-C Unavailable Unavailable PICKMARLO PETERSON J GABI PA-C Unavailable Unavailable PICKLiz SELLERS JR PA-C Unavailable Unavailable Liz ELLIS JR PA-C Unavailable Unavailable Liz ELLIS JR PA-C Unavailable Unavailable CALEB PETERSON J GABI PA-C Unavailable Unavailable PICKMARLO PETERSON J GABI PA-C Unavailable Unavailable PICKERAL JR J GABI PA-C Unavailable Unavailable PICKERAL JR J GABI PA-C Unavailable Unavailable PICKMARLO PETERSON J GABI PA-C Unavailable Unavailable PICKMARLO PETERSON J GABI PA-C Unavailable Unavailable PICKMARLO PETERSON J GABI PA-C Unavailable Unavailable CALEB PETERSON J GABI PA-C Unavailable Unavailable CALEB PETERSON J GABI PA-C Unavailable Unavailable PICKERAL JR J GABI PA-C Unavailable Unavailable PICKERAL JR J GABI PA-C Unavailable Unavailable CALEB PETERSON J GABI PA-C Unavailable Unavailable CALEB PETERSON J GABI PA-C Unavailable Unavailable PICKMARLO PETERSON J GABI PA-C Unavailable Unavailable PICKERAL JR J GABI PA-C Unavailable Unavailable PICKERAL JR J GABI PA-C Unavailable Unavailable PICKERAL JR, Liz ASHLEY PA-C Unavailable Unavailable PICKERAL JR, Liz ASHLEY PA-C Unavailable Unavailable PICKERAL JR, Liz ASHLEY PA-C Unavailable Unavailable PICKERAL JR, Liz ASHLEY PA-C Unavailable Unavailable PICKERAL JR, J GABI PA-C Unavailable Unavailable Fairdale, Christopher DO Unavailable Unavailable Fairdale, Christopher DO Unavailable Unavailable Fairdale, Christopher DO Unavailable Unavailable Alias, Christopher DO Unavailable Unavailable Fairdale, Christopher DO Unavailable Unavailable Alisa, Christopher DO Unavailable Unavailable Fairdale, Christopher DO Unavailable Unavailable Fairdale, Christopher DO Unavailable Unavailable Fairdale, Christopher DO Unavailable Unavailable Fairdale, Christopher DO Unavailable Unavailable Re-disclosure Warning The records that you are about to access may contain information from federally-assisted alcohol or drug abuse programs. If such information is present, then the following federally mandated warning applies: This information has been disclosed to you from records protected by federal confidentiality rules (42 CFR part 2). The federal rules prohibit you from making any further disclosure of this information unless further disclosure is expressly permitted by the written consent of the person to whom it pertains or as otherwise permitted by 42 CFR part 2. A general authorization for the release of medical or other information is NOT sufficient for this purpose. The Federal rules restrict any use of the information to criminally investigate or prosecute any alcohol or drug abuse patient.The records that you are about to access may contain highly sensitive health information, the redisclosure of which is protected by Article 27-F of the [facility] Public Health law. If you continue you may have access to information: Regarding HIV / AIDS; Provided by facilities licensed or operated by the [facility] Office of Mental Health; or Provided by the [facility] Office for People With Developmental Disabilities. If such information is present, then the following [facility] mandated warning applies: This information has been disclosed to you from confidential records which are protected by state law. State law prohibits you from making any further disclosure of this information without the specific written consent of the person to whom it pertains, or as otherwise permitted by law. Any unauthorized further disclosure in violation of state law may result in a fine or nursing home sentence or both. A general authorization for the release of medical or other information is NOT sufficient authorization for further disc losure. Family History Family Member Name Family Member Gender Family Member Status Date o f Status Description Data Source(s) Unknown Male Problem MEDENT ([facility]) Encounters Encounter Providers Location Date Indications Data Source(s ) Outpatient Attender: Leo Mos[place] Smith ll 05/27/2021 09:00:00 AM EDT MEDENT ([facility] ) [place] [address] [facility] [address] 04/25/2021 12:00:00 AM EDT eCW1 ([facility]) Unknown [address] [facility] [place] [address] 03/19/2021 12:00:00 AM EDT eCW1 ([facility]) Outpatient [address] [facility] [place] [address] 03/14/2021 12:00:00 AM EDT eCW1 ([facility]) Unknown [address] [facility] [place] [address] 12/26/2020 12:00:00 AM EDT eCW1 ([facility]) Outpatient [address] [facility] [place] [address] 12/11/2020 12:00:00 AM EDT eCW1 ([facility]) Outpatient Attender: GABI Thrasherg Jed 0 11/15/2020 09:00:00 AM EDT MEDENT ([facility] ) Unknown [address] [facility] [place] [address] 06/05/2020 12:00:00 AM EDT eCW1 ([facility]) Immunizations Vaccine Date Status Description Data Source(s) VARICELLA-ZOSTER [id number] 12/23/2020 12:00:00 AM EDT completed [facility] COVID-19 VACCINE Rickie 11/06/2020 12:00:00 AM EDT completed [facility] Vaccine Series Complete: YESThis Data wa s Submitted to [facility] Via [employer]. Medications Medication Brand Name Start Date Product Form Dose Route Admi nistrative Instructions Pharmacy Instructions Status Indications Reaction Description Data Source(s) Shingrix Shingrix 12/20/2020 12:00:00 AM EDT activ e MEDENT ([facility]) No Active Medications 11/15/2020 12:00:00 AM EDT completed MEDENT ([facility]) Covid-19 vaccine, Unspecified 11/06/2020 12:00:00 AM EDT completed [facility] ([facility]) Medication administered onsite Insurance Providers Payer name Policy type / Coverage type Policy ID Covered green party ID Covered green party's relationship to tong Policy Tong Plan Information BCBS VANNA HMO [id number] SP [id number] BCBS VANNA HMO [id number] SP [id number] [place] PPO 302/[id number] SP [id number] CANCER SERVICES PROGRAM [id number] SP [id number] [facility] O [id number] S [id number] [facility] [id number] SP [id number] ANSI-Commercial [id number] ANSI-Commercial [id number] [facility] [id number] [place] [id number] MEDICAID [id number] SP [id number] SELF PAY UNAVAILABLE UNAVAILA BLE [place] [id number] [place] [id number] Problems, Conditions, and Diagnoses No Information Surgeries/Procedures Procedure Description Date Indications Data Source(s) ECG ROUTINE ECG W/LEAST 12 LDS W/I&R 05/27/2021 12:00: 00 AM EDT MEDLEONARDO ([facility]) OFFICE OUTPATIENT VISIT 25 MINUTES 05/27/2021 12:00:00 AM EDT MEDLEONARDO ([facility]) ECG ROUTINE ECG W/LEAST 12 LDS W/I&R 11/15/2020 12:00: 00 AM EDT MEDLEONARDO ([facility]) INITIAL PREVENTIVE MEDICINE NEW PATIENT 40-64YRS 11/15 12:00:00 AM EDT MEDENT ([facility]) Results ID Date Data Source [id number] 06/12/2021 10:25:00 AM EDT [facility] Name Value Range Interpretation Code Description Data Afshan rce(s) Supporting Document(s) SARS-CoV-2 (COVID-19) RNA [Presence] in Respiratory specimen by YUNG with probe detection Not Detected [facility] This lab was ordered by [facility] and reported by [facility]. ID Date Data Source [id number] 05/27/2021 09:10:00 AM EDT MEDENT ([facility]) Name Value Range Interpretation Code Description Data Afshan rce(s) Supporting Document(s) Glucose [Mass/volume] in Serum or Plasma 102 mg/dL 74-99 MEDENT ([facility]) 100-125 mg/dL PRE-DIABETES/FASTING >126 mg/dL DIABETES/FASTING Sodium [Moles/volume] in Serum or Plasma 139 meq/L 136-145 MEDENT ([facility]) Creatinine 0.7 mg/dL 0.6-1.3 [facility] ([facility] Urea nitrogen [Mass/volume] in Serum or Plasma 7 mg/dL 7-18 MEDENT ([facility]) Potassium [Moles/volume] in Serum or Plasma 4.1 meq/L 3.5-5.1 MEDENT ([facility]) Chloride [Moles/volume] in Serum or Plasma 102 meq/L 98-107 MEDENT ([facility]) Carbon dioxide, total [Moles/volume] in Serum or Plasma 28 meq/L 21 -32 MEDENT ([facility]) Alkaline phosphatase isoenzyme [Units/volume] in Serum or Pl asma 69 mg/dL 46-116 MEDENT ([facility]) Calcium [Mass/volume] in Serum or Plasma 9.4 mg/dL 8.5-10.1 MEDENT ([facility]) Total Bilirubin 0.4 mg/dL 0.2-1.0 MEDENT ([facility]) Aspartate aminotransferase [Enzymatic activity/volume] in Serum or Plasma 19 U/L 15-37 MEDENT ([facility] ) Alanine aminotransferase [Enzymatic activity/volume] in Seru m or Plasma 22 U/L 12-78 [facility] A/G Ratio 1.24 CALC 1.00-1.90 [facility]) Proteinase 3 Ab [Units/volume] in Serum 7.4 g/dL 6.4-8.2 [facility] Albumin [Mass/volume] in Serum or Plasma 4.1 g/dL 3.4-5.0 [facility] Glomerular filtration rate/1.73 sq M pre dicted among blacks [Volume Rate/Area] in Serum or Plasma by Creatinine-based formula (MDRD) Laboratory test result [facility] ([facility]) <content>CHRONIC KIDNEY DISEASE STAGING PER NKF</content>
<content></content>
<content>STAGE I & II GFR >= 60 NORMAL TO MILDLY DECREASED</content>
<content>STAGE III GFR 30-59 MODERATELY DECREASED</content>
<content>STAGE IV GFR 15-29 SEVERELY DECREASED</content>
<content>STAGE V GFR <15 VERY LITTLE GFR LEFT</content>
<content>ESRD GFR <15 ON YARN DUMPER</content>
<content></content> Glomerular filtration rate/1.73 sq M pre dicted among non-blacks [Volume Rate/Area] in Serum or Plasma by Creatinine-based formula (MDRD) Laboratory test result [facility] ID Date Data Source [id number] 05/27/2021 09:10:00 AM EDT [facility] Name Value Range Interpretation Code Description Data Afshan rce(s) Supporting Document(s) Leukocytes [#/volume] in Blood by Automated count 6.4 x10*3/UL 4.1-10 .9 [facility] Hemoglobin [Mass/volume] in Blood 14.3 g/dL 12.0-18.0 [facility] Erythrocytes [#/volume] in Blood by Automated count 4.20 x10*6/UL 4.2 0-6.30 MEDENT ([facility]) MCH 34.1 pg 26.0-32.0 [facility]) MCV 96.0 fL 80.0-97.0 MEDENT ([facility]) Hematocrit [Volume Fraction] of Blood by Automated count 40.4 % 3 7.0-51.0 [facility] ([facility] Platelets [#/volume] in Blood by Automated count 210 x10*3/UL 140-440 [facility] ([facility] MCHC 35.5 g/dL 31.0-38.0 MEDENT ([facility]) Erythrocyte distribution width [Ratio] by Automated count 12.9 % 11.6-13.7 MED[facility] ([facility]) Mid % 5.6 % 1.7-9.3 [facility] ([facility]) MPV 8.3 FL 7.8-11.0 MEDENT ([facility]) Lymph % 23.6 % 10.0-58.5 MED[facility] ([facility]) Lymph # 1.5 x10*3/UL 0.6-4.1 MEDENT ([facility]) Mid # 0.4 x10*3/UL 0.1-0.6 [facility] ([facility]) Neut % 70.8 % 37.0-92.0 [facility] ([facility]) Neut # 4.5 x10*3/UL 2.0-7.8 [facility] ([facility]) ID Date Data Source [id number] 03/14/2021 03:31:00 PM EDT [facility] ([facility] Name Value Range Interpretation Code Description Data Afshan rce(s) Supporting Document(s) Thyrotropin [Units/volume] in Serum or Plasma by Detec tion limit <= 0.05 mIU/L 0.796 uIU/ML 0.358-3.740 MEDENT ([facility] ) Thyroxine (T4) free [Mass/volume] in Serum or Plasma 0.76 ng/dL 0.76- 1.46 MEDENT ([facility]) Prolactin [Mass/volume] in Serum or Plasma 9.4 ng/mL MEDENT ([facility]) Non-: 2.8 - 29.2 ng/mL : 9.7 - 208.5 ng/mL Post Menopausal: 1.8 - 20.3 ng/mL ID Date Data Source TSH 03/14/2021 12:00:00 AM EDT eCW1 ([facility]) Name Value Range Interpretation Code Description Data Afshan rce(s) Supporting Document(s) 0.796 0.358-3.740 THYROID STIMULATING HORM ONE eCW1 ([facility]) ID Date Data Source PROLACTIN 03/14/2021 12:00:00 AM EDT eCW1 ([facility]) Name Value Range Interpretation Code Description Data Afshan rce(s) Supporting Document(s) 9.4 PROLACTIN eCW1 ([facility]) ID Date Data Source FREE T4 03/14/2021 12:00:00 AM EDT eCW1 ([facility]) Name Value Range Interpretation Code Description Data Afshan rce(s) Supporting Document(s) 0.76 0.76-1.46 FREE T4 eCW1 ([facility]) ID Date Data Source WWBC DIGITAL / CATALINO BILATERAL MAMMO SCREENING (Ultraso und if indicated) 12/11/2020 12:00:00 AM EDT eCW1 ([facility]) Name Value Range Interpretation Code Description Data Afshan rce(s) Supporting Document(s) WWBC DIGITAL / CATALINO BILAT ERAL MAMMO SCREENING (Ultrasound if indicated) eCW1 ([facility]) ID Date Data Source [id number] 11/15/2020 09:28:00 AM EDT MEDENT ([facility]) Name Value Range Interpretation Code Description Data Afshan rce(s) Supporting Document(s) Thyrotropin [Units/volume] in Serum or Plasma by Detec tion limit <= 0.05 mIU/L 0.48 uIU/mL 0.36-3.74 MEDENT ([facility] ) ID Date Data Source [id number] 11/15/2020 09:28:00 AM EDT MEDENT ([facility]) Name Value Range Interpretation Code Description Data Afshan rce(s) Supporting Document(s) Triglyceride [Mass/volume] in Serum or Plasma 54 mg/dL 30-150 MEDENT ([facility]) Cholesterol [Mass/volume] in Serum or Plasma 144 mg/dL 131-200 MEDENT ([facility]) Cholesterol in LDL [Mass/volume] in Serum or Plasma by calcu lation 63 CALC 50-159 MEDENT ([facility]) Cholesterol in HDL [Mass/volume] in Serum or Plasma 70 mg/dL 35-60 MEDENT ([facility]) ID Date Data Source [id number] 11/15/2020 09:28:00 AM EDT MEDENT ([facility]) Name Value Range Interpretation Code Description Data Afshan rce(s) Supporting Document(s) Glucose [Mass/volume] in Serum or Plasma 123 mg/dL 74-99 MEDENT ([facility]) 100-125 mg/dL PRE-DIABETES/FASTING >126 mg/dL DIABETES/FASTING Urea nitrogen [Mass/volume] in Serum or Plasma 10 mg/dL 7-18 MEDENT ([facility]) Potassium [Moles/volume] in Serum or Plasma 4.5 meq/L 3.5-5.1 MEDENT ([facility]) Sodium [Moles/volume] in Serum or Plasma 137 meq/L 136-145 MED[facility] ([facility]) Creatinine 0.6 mg/dL 0.6-1.3 [facility] Chloride [Moles/volume] in Serum or Plasma 102 meq/L 98-107 MEDENT ([facility]) Carbon dioxide, total [Moles/volume] in Serum or Plasma 25 meq/L 21 -32 MED[facility] ([facility]) Calcium [Mass/volume] in Serum or Plasma 9.2 mg/dL 8.5-10.1 MEDENT ([facility]) Alkaline phosphatase isoenzyme [Units/volume] in Serum or Pl asma 79 mg/dL 46-116 [facility] ([facility]) Aspartate aminotransferase [Enzymatic activity/volume] in Serum or Plasma 28 U/L 15-37 MEDENT ([facility] ) Total Bilirubin 0.5 mg/dL 0.2-1.0 MEDENT ([facility]) Alanine aminotransferase [Enzymatic activity/volume] in Seru m or Plasma 37 U/L 12-78 MEDENT ([facility]) Albumin [Mass/volume] in Serum or Plasma 4.1 g/dL 3.4-5.0 MEDENT ([facility]) Proteinase 3 Ab [Units/volume] in Serum 8.0 g/dL 6.4-8.2 [facility]) A/G Ratio 1.05 CALC 1.00-1.90 [facility] Glomerular filtration rate/1.73 sq M pre dicted among non-blacks [Volume Rate/Area] in Serum or Plasma by Creatinine-based formula (MDRD) Laboratory test result [facility] ([facility] Glomerular filtration rate/1.73 sq M pre dicted among blacks [Volume Rate/Area] in Serum or Plasma by Creatinine-based formula (MDRD) Laboratory test result [facility] <content>CHRONIC KIDNEY DISEASE STAGING PER NKF</content>
<content></content>
<content>STAGE I & II GFR >= 60 NORMAL TO MILDLY DECREASED</content>
<content>STAGE III GFR 30-59 MODERATELY DECREASED</content>
<content>STAGE IV GFR 15-29 SEVERELY DECREASED</content>
<content>STAGE V GFR <15 VERY LITTLE GFR LEFT</content>
<content>ESRD GFR <15 ON YARN DUMPER</content>
<content></content> ID Date Data Source [id number] 11/15/2020 09:28:00 AM EDT MEDENT ([facility]) Name Value Range Interpretation Code Description Data Afshan rce(s) Supporting Document(s) Leukocytes [#/volume] in Blood by Automated count 5.6 x10*3/UL 4.1-10 .9 [facility] ([facility]) Hematocrit [Volume Fraction] of Blood by Automated count 41.4 % 3 7.0-51.0 [facility] ([facility]) Hemoglobin [Mass/volume] in Blood 14.0 g/dL 12.0-18.0 [facility] Erythrocytes [#/volume] in Blood by Automated count 4.39 x10*6/UL 4.2 0-6.30 [facility] ([facility] MCH 31.9 pg 26.0-32.0 MED[facility] ([facility]) MCV 94.2 fL 80.0-97.0 [facility] ([facility]) Platelets [#/volume] in Blood by Automated count 297 x10*3/UL 140-440 [facility] Erythrocyte distribution width [Ratio] by Automated count 12.3 % 11.6-13.7 [facility] ([facility] MCHC 33.9 g/dL 31.0-38.0 MED[facility] ([facility]) MPV 7.5 FL 7.8-11.0 [facility] ([facility]) Lymph % 31.0 % 10.0-58.5 [facility] ([facility]) Neut % 60.8 % 37.0-92.0 [facility] ([facility]) Mid % 8.2 % 1.7-9.3 [facility] ([facility]) Lymph # 1.7 x10*3/UL 0.6-4.1 [facility] ([facility]) Mid # 0.5 x10*3/UL 0.1-0.6 [facility] ([facility]) Neut # 3.4 x10*3/UL 2.0-7.8 [facility] ([facility]) ID Date Data Source [id number] 11/15/2020 09:27:00 AM EDT MEDENT ([facility]) Name Value Range Interpretation Code Description Data Afshan rce(s) Supporting Document(s) Hemoglobin A1c/Hemoglobin.total in Blood 5.4 % [facility] ([facility] Lab Result Notes: Pre-Diabetes 5.7 - 6.4 % Diabetes = or > 6.5% Glucose mean value [Mass/volume] in Blood Estimated fr om glycated hemoglobin 108 mg/dL 60-110 MEDENT ([facility] ) Procedure Social History Code Duration Value Status Description Data Source(s ) Smoking 03/14/2021 12:00:00 AM EDT Never Smoker completed Never S moker eCW1 ([facility]) Smoking 03/14/2021 12:00:00 AM EDT Never Smoker completed Never S moker eCW1 ([facility]) Smoking 03/14/2021 12:00:00 AM EDT Never Smoker completed Never S moker eCW1 ([facility]) Smoking 12/11/2020 12:00:00 AM EDT Never Smoker completed Never S moker eCW1 ([facility]) Smoking 12/11/2020 12:00:00 AM EDT Never Smoker completed Never S moker eCW1 ([facility]) Vital Signs ID Date Data Source UNK Name Value Range Interpretation Code Description Data Source(s) Body weight 127.00 [lb_av] 127.00 [lb_av] MEDEN T ([facility]) Systolic blood pressure 122 mm[Hg] 122 mm[Hg] EDENT ([facility]) Diastolic blood pressure 72 mm[Hg] 72 mm[Hg] [facility] Heart rate 68 /min 68 /min MEDENT ([facility]) Body height 64 [in_i] 64 [in_i] MEDENT ([facility]) 5'4" Body mass index (BMI) [Ratio] 21.8 kg/m2 21.8 k g/m2 MEDENT ([facility]) Body weight 127 [lb_av] 127 [lb_av] eCW1 ([facility]) Body weight 57.61 kg 57.61 kg eCW1 ([facility]) Body height [in_i] eCW1 ([facility]) Body mass index (BMI) [Ratio] 21.13 kg/m2 21.13 kg/m2 eCW1 ([facility]) Heart rate 90 /min 90 /min eCW1 ([facility]) Respiratory rate 18 /min 18 /min eCW1 ([facility]) Body temperature 98.5 [degF] 98.5 [degF] eCW1 ( [facility]) Systolic blood pressure 144 mm[Hg] 144 mm[Hg] e CW1 ([facility]) Diastolic blood pressure 81 mm[Hg] 81 mm[Hg] eCW1 ([facility]) Body weight 131 [lb_av] 131 [lb_av] eCW1 ([facility]) Body weight 59.42 kg 59.42 kg eCW1 ([facility]) Body height [in_i] eCW1 ([facility]) Body mass index (BMI) [Ratio] 21.8 kg/m2 21.8 k g/m2 eCW1 ([facility]) Systolic blood pressure 126 mm[Hg] 126 mm[Hg] e CW1 ([facility]) Diastolic blood pressure 74 mm[Hg] 74 mm[Hg] eCW1 ([facility]) Heart rate 82 /min 82 /min MEDLEONARDO ([facility]) Body height 64 [in_i] 64 [in_i] MEDLEONARDO ([facility]) 5'4" Body weight 130.00 [lb_av] 130.00 [lb_av] TANVIREN T ([facility]) Oxygen saturation in Arterial blood by Pulse oximetry 98 % 98 % K[facility] ([facility]) RM Air Body mass index (BMI) [Ratio] 22.3 kg/m2 22.3 k g/m2 [facility] ([facility]) Systolic blood pressure 134 mm[Hg] 134 mm[Hg] M EDENT ([facility]) Diastolic blood pressure 84 mm[Hg] 84 mm[Hg] MEDLEONARDO ([facility])
[2021-06-17] MEDS ORDERED: BUPIVACAINE HCL 0.25% 30ML VIAL As Ordered ONE (07:11)
[2021-06-17] MEDS ORDERED: LIDOCAINE 1% SDV 30ML VIAL As Ordered ONE (07:11)
[2021-06-17] MEDS ORDERED: ALBUTEROL SULFATE 2.5 MG/0.5 ML INH NEB SOLN INH ONE (07:25)
[2021-06-17] MEDS ORDERED: LIDOCAINE 2% 100MG/5ML SDV (FOR ANES.) As Ordered ONE ×2 (07:52→07:53)
[2021-06-17] MEDS ORDERED: fentaNYL 100 MCG/2 ML INJECTION (J3010) As Ordered ONE (07:52)
[2021-06-17] MEDS ORDERED: MIDAZOLAM INJ 2MG/2ML VIAL (J2250 PER 1MG) As Ordered ONE (07:52)
[2021-06-17] MEDS ORDERED: METOCLOPRAMIDE INJ 10MG/2ML VIAL (J2765 PER 1) As Ordered ONE ×2 (07:52→07:53)
[2021-06-17] MEDS ORDERED: propofoL 200 MG/20 ML VIAL As Ordered ONE ×3 (07:52→08:03)
[2021-06-17] MEDS ORDERED: KETOROLAC 60MG 2ML VIAL As Ordered ONE (07:52)
[2021-06-17] MEDS ORDERED: ONDANSETRON 4MG/2ML VIAL As Ordered ONE ×2 (07:52→07:53)
[2021-06-17] MEDS ORDERED: ACETAMINOPHEN 1000MG 100ML IV BTL (OFIRMEV) (J0131 PER 10MG) As Ordered ONE (07:52)
[2021-06-17] MEDS ORDERED: dexameTHASONE 4 MG/ML 1ML VIAL (J1100 PER 1MG) As Ordered ONE ×2 (07:52→07:53)
[2021-06-17] MEDS ORDERED: ULTR50TA8 PO (09:14)
[2021-06-17] MEDS ORDERED: oxyCODONE 5MG TAB PO PRN (09:20)
[2021-06-17] MEDS ORDERED: LR 1,000 ML IV SCH (09:20)
[2021-06-17] MEDS ORDERED: fentaNYL 100 MCG/2 ML INJECTION (J3010) IV PRN (09:20)
[2021-06-17 10:16] VITALS: BP 155/86
--- NOTE | 2021-06-21 11:09 | ROOPDOC ---
[facility] Report Of Operation Report of Operation DATE OF PROCEDURE: 06/17/21 PREPROCEDURE DIAGNOSES: Right spontaneous nipple discharge POSTPROCEDURE DIAGNOSES: Right spontaneous nipple discharge PROCEDURE PERFORMED: Right breast focused excision of draining duct SURGEON: Dr Deisy Nichols ANESTHESIA: general ESTIMATED BLOOD LOSS: Approximately 5 mL. COMPLICATIONS: none FINDINGS: draining duct identified DESCRIPTION OF PROCEDURE: INDICATIONS: Ms. Meloyd Sosa is a 55-year-old woman who was found to have a unilateral spontaneous nipple discharge from the right breast. She underwent diagnostic images with mammogram, ultrasound and MRI which did not reveal suspicious lesions. The right nipple discharge was persistent and spontaneous, coming from one duct. I have discussed with the patient that due to the lack of specific tar getable lesion, I recommended right breast focused duct excision. She was medically cleared for surgery by her primary care doctor. Risks and possible complications of surgical procedure including bleeding, infection and injury to surrounding structures were explained to the patient and she wished to proceed. Consent was signed. My initials were placed on the operative site. DETAILS: Patient was taken to the operating room and placed on the operating room table. A sign in was called stating patients name, date of and the procedure to be done. Preoperative antibiotics were infused. Smooth induction of general anesthesia was done. Patients hands were extended on arm rests. Care was taken not to over extend the arms. Ultrasound was used to see if any dilated duct can be identified. Next, patients right breast and axilla were prepped and draped in the usual fashion. Appropriate time out was done stating patients name, date of and the procedure to be done. Next, the right nipple was assessed for the drainage. Drainage was noted in the lateral part of the nipple. Smallest lacrimal probe was used to interrogate the duct producing the drainage. The lacrimal probe went smoothly into the duct and was advanced into the distal part of the duct. Additional drainage was noted around the lacrimal probe. Local anesthetic using 1% lidocaine and 0.25 % Marcaine 50/50 mix was injected at the site of planned periareolar incision. The incision was made with the scalpel. Subcutaneous skin flaps were raised. The lacrimal probe was kept in place in the affected duct throughout dissection. Draining duct and immediate tissue under the right nipple were excised. Extent of dissection was carried along the length of lacrimal probe earlier placed into the affected duct. After the dissected tissue was from the remaining breast tissue the lacrimal probe was then removed from the duct and the duct was disconnected from the nipple site. Short black stitch was placed at the site of duct entry. The long black stitch was placed at the distal point of transection. The specimen was carefully removed from the breast and placed in formaldehyde. The specimen was labeled with patients name and right focused duct excision and then sent to pathology. Next, the wound was irrigated thoroughly and adequate hemostasis was assured. Additional local anesthetic was injected into surrounding tissues. space was approximated with 2-0 Vicryl. The dermis was closed with 3-0 Vicryl and skin was closed with 4-0 Monocryl. Surgical glue was placed over the incision. Patient emerged from the anesthesia without any problems. Fluffs were placed over the operative site and patients chest was wrapped snuggly in the ELIZABETH wrap. Sponge and instrument counts were done and were correct. Patient tolerated procedure well and was taken to recovery unit in stable condition. DEISY NICHOLS DO Jun 21, 2021 11:09
== END 2021-06-17 10:21 | disposition home or self-care (01) ==
LOC: M SDC 06:01
PROVIDERS: ATTEND Surgery
DX: N60.41 Mammary duct ectasia of right breast (principal); D24.1 Benign neoplasm of right breast; Z79.899 Other long term (current) drug therapy
CPT/HCPCS: 19110; 36415; 81025; 86850; 86900; 86901; 88307; J0131; J0690; J1100; J1644; J1885; J2250; J2405; J2765; J3010

== ENCOUNTER → 2021-12-15 | Outpatient (CLI) | payer BC ==
[~2021-12-15] MED LIST changes: -HEPARIN SOD (PORCINE) 5000UNITS/ML 1ML VIAL/SYRINGE SQ ONE; -LR 1,000 ML IV ONE; +ULTR50TA8 PO; -ceFAZolin SOD 2 GM in IV 1 EA IV ONE
== END ==
LOC: M WHC 07:37
PROVIDERS: ATTEND Surgery
DX: Z12.31 Encounter for screening mammogram for malignant neoplasm of breast (principal); Z91.89 Other specified personal risk factors, not elsewhere classified

== ENCOUNTER → 2022-11-30 | Outpatient (REF) | payer BC | LOC: M PLALAB 07:47 | PROVIDERS: ATTEND Nurse Practitioner Family | DX: Z12.4 Encounter for screening for malignant neoplasm of cervix (principal) ==

== ENCOUNTER → 2022-12-17 | Outpatient (CLI) | payer BC | LOC: M WHC 07:50 | PROVIDERS: ATTEND Nurse Practitioner Women's Health | DX: Z12.31 Encounter for screening mammogram for malignant neoplasm of breast (principal) ==

== ENCOUNTER → 2023-06-10 | Outpatient (CLI) | payer BC ==
[~2023-06-10] MED LIST changes: +PROHANCE 279.3MG/ML 15ML VIAL As Ordered ONE
== END ==
LOC: M RAD 14:31
PROVIDERS: ATTEND Nurse Practitioner Women's Health
DX: R92.2 Inconclusive mammogram (principal); Z91.89 Other specified personal risk factors, not elsewhere classified; Z80.3 Family history of malignant neoplasm of breast
CPT/HCPCS: 77049; A9576

== ENCOUNTER → 2023-12-28 | Outpatient (CLI) | payer OTHER ==
[~2023-12-28] MED LIST changes: -PROHANCE 279.3MG/ML 15ML VIAL As Ordered ONE
== END ==
LOC: M WHC 14:06
PROVIDERS: ATTEND Nurse Practitioner Women's Health
DX: Z12.31 Encounter for screening mammogram for malignant neoplasm of breast (principal)

== ENCOUNTER → 2024-02-23 | Outpatient (REF) | payer OTHER, MEDICAID ==
[2024-02-25 12:27] LABS: HPV APTIMA Not Detected (Not Detected)
== END ==
LOC: M SFHCWAGY 12:54
PROVIDERS: ATTEND Nurse Practitioner Family
DX: Z12.4 Encounter for screening for malignant neoplasm of cervix (principal)

== ENCOUNTER → 2025-04-13 | Outpatient (REF) | payer MEDICAID, OTHER ==
[2025-04-17 14:38] LABS: HPV APTIMA Not Detected (Not Detected)
== END ==
LOC: M PLALAB 10:40
PROVIDERS: ATTEND Nurse Practitioner Family
DX: Z12.4 Encounter for screening for malignant neoplasm of cervix (principal)

== ENCOUNTER → 2025-04-13 | Outpatient (CLI) | payer OTHER | LOC: M WHC 10:30 | PROVIDERS: ATTEND Obstetrics & Gynecology | DX: Z12.31 Encounter for screening mammogram for malignant neoplasm of breast (principal); R92.343 Mammographic extreme density, bilateral breasts ==